=== PATIENT | male | born 1960 | race Caucasian/White ===

== ENCOUNTER → 2018-02-14 07:01 | Outpatient (CLI) | payer OTHER, SELFPAY ==
[2018-02-14 08:22] LABS: ALT 25 U/L (12-78); AST 14 U/L (15-37); Albumin 4.1 g/dL (3.4-5.0); Alkaline Phosphatase 75 U/L (46-116); Anion Gap 13.9 mmol/L (3-11); BUN 22 mg/dL (7-18); Bilirubin, Total 0.2 mg/dL (0.2-1.0); CO2 25.1 mmol/L (21.0-32.0); CREATININE 0.99 mg/dL (0.70-1.30); Calcium 8.9 mg/dL (8.5-10.1); Chloride 101 mmol/L (98-107); Cholesterol 195 mg/dL (50-200); Glucose 166 mg/dL (70-100); HDL Cholesterol 24 mg/dL (40-60); Hemoglobin A1C 9.6 % (4.5-6.2); LDL CHOLESTEROL 109 mg/dL (<100); Potassium 4.2 mmol/L (3.5-5.1); Sodium 140 mmol/L (136-145); Total Protein 7.1 g/dL (6.4-8.2); Triglyceride 567 mg/dL (30-150)
== END ==
PROVIDERS: PCP Nurse Practitioner; Visit Provider Nurse Practitioner
DX: E11.9 Type 2 diabetes mellitus without complications (principal); E78.5 Hyperlipidemia, unspecified; I10 Essential (primary) hypertension
CPT/HCPCS: 36415; 80053; 80061; 83721; 83036

== ENCOUNTER → 2018-02-20 09:16 | Outpatient (REF) | payer OTHER, SELFPAY ==
[2018-02-20 12:57] LABS: Microalb ug/mg Crea 262.6 ug/mg Cr
== END ==
LOC: LBN 09:16
PROVIDERS: PCP Nurse Practitioner; Visit Provider Nurse Practitioner
DX: E11.65 Type 2 diabetes mellitus with hyperglycemia (principal)
CPT/HCPCS: 82043; 82570

== ENCOUNTER 2018-10-14 10:00 | Outpatient (CLI) | payer OTHER, SELFPAY ==
[2018-10-14 11:13] LABS: ALT 27 U/L (12-78); AST 11 U/L (15-37); Albumin 4.2 g/dL (3.4-5.0); Alkaline Phosphatase 82 U/L (46-116); Anion Gap 14.2 mmol/L (3-11); BUN 27 mg/dL (7-18); Bilirubin, Total 0.3 mg/dL (0.2-1.0); CO2 23.8 mmol/L (21.0-32.0); CREATININE 0.97 mg/dL (0.70-1.30); Calcium 9.8 mg/dL (8.5-10.1); Chloride 101 mmol/L (98-107); Cholesterol 235 mg/dL (50-200); Glucose 195 mg/dL (70-100); HDL Cholesterol 23 mg/dL (40-60); LDL CHOLESTEROL 153 mg/dL (<100); Sodium 139 mmol/L (136-145); Total Protein 7.8 g/dL (6.4-8.2); Triglyceride 471 mg/dL (30-150)
[2018-10-14 11:59] LABS: COMMENT (LAB VIEW ONLY) 71.02 mg/dL; Microalb ug/mg Crea 307.7 ug/mg Cr
== END 2018-10-14 10:20 ==
PROVIDERS: PCP Nurse Practitioner; Visit Provider Nurse Practitioner
DX: E11.9 Type 2 diabetes mellitus without complications (principal); I10 Essential (primary) hypertension; E78.5 Hyperlipidemia, unspecified; E66.9 Obesity, unspecified
CPT/HCPCS: 36415; 80053; 80061; 83721; 82043; 82570

== ENCOUNTER 2018-10-14 10:20 | Day surgery (SDC) | payer OTHER, SELFPAY ==
[2018-10-14 10:40] VITALS: BP 129/65; PULSE 96; RESP 18; TEMP 36.1; O2SAT 97
[2018-10-14] MEDS: Lactated Ringers 1,000 ML 80 ML IV (10:59)
--- NOTE | 2018-10-14 11:06 | W.PREOPHP ---
Documented by User: ALEXEY Schulte 10/14/18 11:26 Date of service: 10/14/18 Assessment and Plan (1) Carpal tunnel syndrome of left wrist: Current visit: No Status: Chronic LEFT ECTR. Details of surgery were discussed with patient as well as risks and pertinent anatomy. All questions were answered. 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 He previously had symptoms in his right hand that were completely resolved with a right ECTR. His left hand is starting to get in the way at work in that he is unable to feel equipment when starting an IV and similar activities. He also is having difficulty feeling a pulse with his left hand. Since a right ECTR worked so well for his symptoms last time, he would like to proceed with a left ECTR. Pertinent Surgical Information Patient denies history of hypertension, CVA, UT, angina, asthma, COPD, renal or liver disorders, hepatitis, bleeding disorders, diabetes, immune or thyroid disorders. No complications from anesthesia. Review of Systems Constitutional Denies fever(s) ENT Denies dizziness and Denies sore throat Cardiovascular Denies chest pain, Denies palpitations and Denies dyspnea Respiratory Denies cough and Denies dyspnea Gastrointestinal Denies abdominal pain, Denies melena, Denies hematochezia, Denies diarrhea, Denies nausea and Denies vomiting Genitourinary Denies hematuria and Denies dysuria Neurologic Denies dizziness Endocrine Denies palpitations PFSH Medical History Unspecified sleep apnea (Acute 09/25/11) Restless legs (Acute 09/25/11) Other and unspecified hyperlipidemia (Acute 10/28/12) Other and unspecified hyperlipidemia (Acute 10/28/12) GERD (gastroesophageal reflux disease) (Acute 08/06/14) Essential hypertension (Acute 01/30/13) Diabetes mellitus (Acute 10/29/12) History of wisdom tooth extraction (Acute) Surgical History History of ankle fusion (Acute) History of open reduction and internal fixation (ORIF) procedure (Acute) History of colonoscopy (Chronic) Endoscopic Carpal Tunnel release (05/16/15) Meniscectomy (04/19/14) Social History Smoking/Tobacco Use Status: Current every day Tobacco Type: cigarettes Years smoked: 45 Alcohol Intake: never Drug use: Never Substance use type: does not use Household members: significant other What is your relationship status?: living with partner Panel score (0-1 are the most socially isolated patients): 1 What type of physical activity do you participate in: none Do you feel safe at home: Yes Do you feel safe in your relationship?: Yes Meds Home Medications Medication Instructions Recorded Confirmed Type ascorbic acid (vitamin C) 1,000 mg PO DAILY 10/06/12 10/14/18 History aspirin [Aspir 81] 81 mg PO DAILY tab 10/06/12 10/14/18 History garlic 1 ea PO DAILY 10/06/12 10/14/18 History multivitamin [Daily Vitamin] 1 ea PO DAILY 10/06/12 10/14/18 History omega-3 fatty acids-fish oil [Fish 1 ea PO HS 10/06/12 10/14/18 History Oil 1,000 Mg Capsule] ginkgo biloba leaf extract 120 mg PO BID 07/22/17 10/14/18 History fenofibrate nanocrystallized 145 mg PO DAILY #90 tab-cap 11/21/17 10/14/18 Rx [Tricor] lisinopril 20 mg PO DAILY #90 tab-cap 11/26/17 10/14/18 Rx pen needle, diabetic [Bd #100 ndl 01/30/18 09/09/18 Rx Ultra-Fine Pen Needle] atorvastatin 80 mg tablet 80 mg PO DAILY #90 tab-cap 04/02/18 10/14/18 Rx glimepiride 4 mg tablet 4 mg PO BID tab 06/02/18 10/14/18 History empagliflozin 25 mg tablet 25 mg PO DAILY #30 tab-cap 07/03/18 10/14/18 Rx omeprazole 20 mg capsule,delayed 20 mg PO DAILY #90 tab-cap 08/18/18 10/14/18 Rx release liraglutide 0.6 mg/0.1 mL (18 mg/3 1.8 mg SUBCUT DAILY #3 syringe 09/03/18 10/14/18 Rx mL) subcutaneous pen injector gabapentin 600 mg tablet 600 mg PO HS #90 tab-cap 10/06/18 10/14/18 Rx metformin ER 1,000 mg 24 hr 2,000 mg PO DAILY #180 tab-cap 10/06/18 10/14/18 Rx tablet,extended release Allergies Allergy/AdvReac Type Severity Reaction Status Date / Time shellfish derived Allergy Unknown throat Verified 10/10/18 08:59 sweLLS Exam HENTN Head: normocephalic and atraumatic General nose exam: no nasal discharge Eyes Conjunctivae: conjunctivae normal Sclera: sclerae normal Resp Effort & Inspection: normal respiratory effort Auscultation: clear to auscultation bilaterally and no wheezes Cardio Rate: regular rate Rhythm: regular rhythm Heart Sounds: S1 normal, S2 normal and no murmurs GI Palpation: soft, no hepatosplenomegaly and nontender Auscultation: normal bowel sounds Results Last Vital Signs Temp 36.1 C L 10/14/18 10:40 Pulse 96 H 10/14/18 10:40 Resp 18 10/14/18 10:40 BP 129/65 10/14/18 10:40 Pulse Ox 97 10/14/18 10:40 Documented by User: Sergio Mccullough MD 10/14/18 12:45 PFSH Medical History Unspecified sleep apnea (Acute 09/25/11) Restless legs (Acute 09/25/11) Other and unspecified hyperlipidemia (Acute 10/28/12) Other and unspecified hyperlipidemia (Acute 10/28/12) GERD (gastroesophageal reflux disease) (Acute 08/06/14) Essential hypertension (Acute 01/30/13) Diabetes mellitus (Acute 10/29/12) History of wisdom tooth extraction (Acute) Surgical History History of ankle fusion (Acute) History of open reduction and internal fixation (ORIF) procedure (Acute) History of colonoscopy (Chronic) Endoscopic Carpal Tunnel release (05/16/15) Meniscectomy (04/19/14) Social History Smoking/Tobacco Use Status: Current every day Tobacco Type: cigarettes Years smoked: 45 Alcohol Intake: never Drug use: Never Substance use type: does not use Household members: significant other What is your relationship status?: living with partner Panel score (0-1 are the most socially isolated patients): 1 What type of physical activity do you participate in: none Do you feel safe at home: Yes Do you feel safe in your relationship?: Yes Meds Home Medications Medication Instructions Recorded Confirmed Type ascorbic acid (vitamin C) 1,000 mg PO DAILY 10/06/12 10/14/18 History aspirin [Aspir 81] 81 mg PO DAILY tab 10/06/12 10/14/18 History garlic 1 ea PO DAILY 10/06/12 10/14/18 History multivitamin [Daily Vitamin] 1 ea PO DAILY 10/06/12 10/14/18 History omega-3 fatty acids-fish oil [Fish 1 ea PO HS 10/06/12 10/14/18 History Oil 1,000 Mg Capsule] ginkgo biloba leaf extract 120 mg PO BID 07/22/17 10/14/18 History fenofibrate nanocrystallized 145 mg PO DAILY #90 tab-cap 11/21/17 10/14/18 Rx [Tricor] lisinopril 20 mg PO DAILY #90 tab-cap 11/26/17 10/14/18 Rx pen needle, diabetic [Bd #100 ndl 01/30/18 09/09/18 Rx Ultra-Fine Pen Needle] atorvastatin 80 mg tablet 80 mg PO DAILY #90 tab-cap 04/02/18 10/14/18 Rx glimepiride 4 mg tablet 4 mg PO BID tab 06/02/18 10/14/18 History empagliflozin 25 mg tablet 25 mg PO DAILY #30 tab-cap 07/03/18 10/14/18 Rx omeprazole 20 mg capsule,delayed 20 mg PO DAILY #90 tab-cap 08/18/18 10/14/18 Rx release liraglutide 0.6 mg/0.1 mL (18 mg/3 1.8 mg SUBCUT DAILY #3 syringe 09/03/18 10/14/18 Rx mL) subcutaneous pen injector gabapentin 600 mg tablet 600 mg PO HS #90 tab-cap 10/06/18 10/14/18 Rx metformin ER 1,000 mg 24 hr 2,000 mg PO DAILY #180 tab-cap 10/06/18 10/14/18 Rx tablet,extended release Allergies Allergy/AdvReac Type Severity Reaction Status Date / Time shellfish derived Allergy Unknown throat Verified 10/10/18 08:59 Estefani
--- NOTE | 2018-10-14 12:45 | W.PM.DSUDISC ---
Discharge Plan Disposition Patient Disposition: HOME Condition: Good Discharge Details Reason For Visit: Left Carpal Tunnel Attending Provider: Sergio Mccullough Primary Care Provider: Dianne Enriquez Home Meds and New Rx's Prescriptions: New acetaminophen 500 mg tablet 1,000 mg PO Q8H PRN (Reason: pain) Qty: 60 RF: 3 ibuprofen 600 mg tablet 600 mg PO TID PRNQty: 60 RF: 3 Continued multivitamin [Daily Vitamin] 1 EACH tablet 1 ea PO DAILY RF: 0 ascorbic acid (vitamin C) 1,000 MG tablet 1,000 mg PO DAILY RF: 0 aspirin [Aspir-81] 81 MG tablet,delayed release (DR/EC) 81 mg PO DAILY RF: 0 garlic 1 EACH capsule 1 ea PO DAILY RF: 0 omega-3 fatty acids-fish oil [Fish Oil] 1 EACH capsule 1 ea PO HS RF: 0 ginkgo biloba leaf extract 120 MG capsule 120 mg PO BID RF: 0 fenofibrate nanocrystallized [Tricor] 145 MG tablet 145 mg PO DAILY Qty: 90 RF: 3 lisinopril 20 MG tablet 20 mg PO DAILY Qty: 90 RF: 4 pen needle, diabetic [BD Ultra-Fine Afua Pen Needle] 1 EACH needle 1 ea Sub-Q DAILY Qty: 100 RF: 3 atorvastatin 80 mg tablet 80 mg PO DAILY Qty: 90 RF: 3 glimepiride 4 mg tablet 4 mg PO BID RF: 0 Jardiance 25 mg tablet 25 mg PO DAILY Qty: 30 RF: 6 omeprazole 20 mg capsule,delayed release(DR/EC) 20 mg PO DAILY Qty: 90 RF: 3 Victoza 3-Alvaro 0.6 mg/0.1 mL (18 mg/3 mL) pen injector 1.8 mg subcut DAILY Qty: 3 RF: 12 gabapentin 600 mg tablet 600 mg PO HS Qty: 90 RF: 3 metformin 1,000 mg tablet,ER beau.retention 24 hr 2,000 mg PO DAILY Qty: 180 RF: 3 Discharge Instructions Stand Alone Forms: Jamel Rios Tunnel Release Referrals: Sergio Mccullough MD [ [facility] STAFF PHYSICIAN] - Equipment/Supplies: Sling Activity:: Elevate Remove Dressings/Wound Care:: 48 hours Shower/Bathe:: 48 hours Diet:: As Tolerated Discharge Orders Discharge Orders: Discharge Order (Routine); Ordered 10/14/18 Ordered By: Sergio Mccullough DS: Diagnosis Discharge Diagnosis (1) Carpal tunnel syndrome of left wrist: Status: Chronic
[2018-10-14] MEDS: ceFAZolin 2 GM/50 ML BAG IVPB (13:11)
[2018-10-14] MEDS: Lidocaine 1% Multi-Dose 50 ML VIAL (13:20)
[2018-10-14 14:00] VITALS: BP 121/69; PULSE 85; RESP 18; TEMP 36.1; O2SAT 94
--- NOTE | 2018-10-15 06:41 | ROE_ITS ---
Date of service: 10/14/18 Time of Service: 13:40 Operative Note DATE OF PROCEDURE: 10/14/18 PRE-OP DIAGNOSIS: Left Carpal Tunnel Syndrome POST-OP DIAGNOSIS: same PROCEDURE: Left Endoscopic Carpal Tunnel Release SURGEON: Sergio Mccullough ANESTHESIA: ANTOINETTE ESTIMATED BLOOD LOSS: 0 PATHOLOGY: none sent TOURNIQUET TIME: 3 COMPLICATIONS: None Patient was transported to: same day Patient's condition: stable Indications: I have seen Nancy in clinic for symptoms of carpal tunnel syndrome. The numbness, tingling, and pain limited function. Clinical exam findings confirmed the diagnosis of carpal tunnel syndrome. Nonoperative measures such as bracing, time, activity modifications had been tried but disability and pain persisted. I discussed carpal tunnel release with the patient. I reviewed the risks of the procedure to include, but not limited to, bleeding, infection, pain, stiffness, incomplete release, damage to nerves or vessels, persistent numbness, recurrence. Despite these risks, the patient elected to proceed. Findings: There was tightened carpal tunnel. This was dilated and released successfully with the endoscopic with increased space within the tunnel. The antebrachial fascia was released proximally freeing the median nerve at the wrist. Procedure Description: Nancy was greeted in the preoperative holding area where the correct side was identified and marked. The consent was reviewed with the patient and signed. The history and physical was updated. All questions were answered. He was taken back to the operating room. The patient was placed into the supine position on the operating room table with the left arm on an arm board. A nonsterile tourniquet was placed high onto the arm. All bony prominences were well padded. Prophylactic antibiotics in the form of cefazolin were administered. The left arm was then prepped with Chloraprep and draped in a standard fashion with stockinette and extremity drape. A timeout to confirm correct identity, side and site, procedure, allergies, anesthesia, and medical concerns was performed. The surgical site was marked in the volar wrist creases in line with the radial border of the fourth ray. This area was anesthetized with approximately 6cc of 1% Lidocaine. The limb was then exsanguinated with an Esmarch. The skin was incised with a 15 blade, approximately 1cm. The skin only was cut and the deeper tissue was dissected bluntly with a tenotomy scissor, avoiding passing nerve and venous structures. The fascia was penetrated and opened bluntly. A two-prong skin hook was placed under this proximal fascial edge. A series of hamate finders were used to identify and dilate the carpal tunnel. Synovial elevator was used to free synovial attachments to the underside of the transverse carpal ligament. My thumb was kept in the palm to shannan the distal extent of the carpal tunnel and correctly position the hand. The Microaire endoscope was inserted without difficulty and without resistance. Excellent visualization showed horizontally running fibers of the transverse carpal ligam ent (TCL). The distal extent of the TCL was visualized and the end of the scope palpated with the thumb. The blade was elevated and withdrawn from distal to proximal. The TCL was split into two flaps. The endoscope was reinserted to confirm complete release and any remnant ligament was incised. The scope was withdrawn and the proximal aspect of the carpal tunnel was grossly inspected and appeared release with the median nerve visible. The antebrachial fascia at the level of the wrist was then freed from the overlying skin and then the underlying median nerve with blunt dissection. This was transected longitudinally for about 3cm proximal to the wrist incision. The wound was then irrigated with easy flow of irrigant distally and proximally. The incision was closed with a single 4-0 Nylon suture. The wound was dressed with Xeroform, Gauze, Kerlix and Gorge. The tourniquet was deflated with the initial dressing and held with some pressure. Blood flow returned easily to all digits with capillary refill less than 2 seconds. The patient tolerated the procedure well and was returned to the Same Day Surgery area in a stable condition suffering no known complication.
== END 2018-10-14 14:05 | disposition home or self-care (01) ==
PROVIDERS: PCP Nurse Practitioner; Visit Provider Student in an Organized Health Care Education/Training Program
PROC: 01N54ZZ Release Median Nerve, Percutaneous Endoscopic Approach (ICD-10-PCS; CPT 29848; principal; 2018-10-14 12:30)
DX: G56.02 Carpal tunnel syndrome, left upper limb (principal)
CPT/HCPCS: 29848; NC; J0690; J2250; L3650

== ENCOUNTER 2019-01-16 11:04 | Outpatient (CLI) | payer OTHER, SELFPAY ==
--- NOTE | 2019-01-16 08:11 | DI.RAD_ITS ---
SYMPTOM/DIAGNOSIS: LT SHOULDER PAIN/WEAKNESS LEFT SHOULDER: Three views. Comparison 03/06/2008. There are mild hypertrophic changes seen at the acromioclavicular joint and mild changes seen at the glenohumeral joint. The bones are intact. The soft tissues are unremarkable. IMPRESSION: Mild degenerative changes of the left shoulder.
== END 2019-01-16 11:24 ==
PROVIDERS: PCP Nurse Practitioner; Visit Provider Physician Assistant
DX: S49.92XA Unspecified injury of left shoulder and upper arm, initial encounter (principal); M25.512 Pain in left shoulder; M19.012 Primary osteoarthritis, left shoulder
CPT/HCPCS: 73030

== ENCOUNTER 2019-01-27 00:49 | Outpatient (CLI) | payer OTHER, SELFPAY ==
--- NOTE | 2019-01-27 08:40 | DI.MRI_ITS ---
SYMPTOM/DIAGNOSIS: LEFT SHOULDER PAIN/WEAKNESS M75.122 ROTATOR CUFF TEAR LT SHOULDER MRI LEFT SHOULDER: Routine examination was performed. There is patient motion artifact which degrades the image quality. There is a full thickness tear of the supraspinatus tendon at its insertion on to the greater tuberosity. There is also a full thickness tear of the infraspinatus tendon at its insertion site. The teres minor and subscapularis tendons are intact. There is mild fatty atrophy involving the supraspinatus and infraspinatus muscles The teres minor subscapularis muscles appear within normal limits. The biceps tendon has a normal appearance and location. There does appear to be increased signal in the superior labrum. This may represent degeneration or a tear. There are hypertrophic changes seen at the acromioclavicular joint and the greater tuberosity. No findings to suggest an occult fracture or avascular necrosis. The articular cartilage at the glenohumeral joint appears well maintained. The ligaments are intact. No soft tissue mass is seen. There is a small amount of fluid which appears in the subacromial, subdeltoid bursa. IMPRESSION: 1. Limited examination due to patient motion artifact. 2. Findings suggestive of full thickness tears involving the supraspinatus and infraspinatus tendon 3. Abnormal signal seen in the superior labrum. This may represent degeneration and/or tear. 4. Degenerative changes of the shoulder.
== END 2019-01-27 01:09 ==
PROVIDERS: PCP Nurse Practitioner; Visit Provider Physician Assistant
DX: M75.122 Complete rotator cuff tear or rupture of left shoulder, not specified as traumatic (principal); M25.512 Pain in left shoulder; M19.012 Primary osteoarthritis, left shoulder
CPT/HCPCS: 73221

== ENCOUNTER 2019-03-09 07:23 | Outpatient (CLI) | payer OTHER, SELFPAY ==
[2019-03-09 08:06] LABS: Hemoglobin A1C 7.8 % (4.5-6.2)
== END 2019-03-09 07:43 ==
PROVIDERS: Student in an Organized Health Care Education/Training Program; PCP Nurse Practitioner; Visit Provider Nurse Practitioner
DX: E11.9 Type 2 diabetes mellitus without complications (principal)
CPT/HCPCS: 36415; 83036

== ENCOUNTER 2019-03-24 08:46 | Outpatient (CLI) | payer OTHER, SELFPAY ==
--- NOTE | 2019-03-24 07:59 | W.PREOPHP ---
Assessment and Plan Assessment and plan (1) Tear of left rotator cuff: Status: Chronic Assessment and plan: Plan: Educated patient on surgery covering surgical technique, recovery process, benefits and risks including but not limited to risk of infection, blood clot, damage to soft tissue/blood vessels/nerves in detail. After discussion patient gives verbal understanding of risks and elects to proceed with scheduling surgery. Patient had opportunity to have questions answered to their satisfaction. They will contact office if issues arise. Patient will continue to be scheduled for left arthroscopic rotator cuff repair, biceps tenodesis with Dr. Mccullough. Qualifiers: Rotator cuff tear extent: complete Rotator cuff tear trauma status: unspecified whether traumatic Qualified Code(s): M75.122 - Complete rotator cuff tear or rupture of left shoulder, not specified as traumatic History of Present Illness Narrative: Mr. Lassiter is a 59-year-old right-hand dominant male who presents to clinic for pre-operative visit for scheduled arthroscopic left rotator cuff repair and biceps tenodesis with Dr. Mccullough. Patient has history of left shoulder injury several years ago which he has managed conservatively. However, over the past 6 months he experienced increased difficulty using his arm including difficultly lifting the arm in abduction and forward flexion. Reports a constant pain diffusely around the shoulder rated a 3/10. Has tried tylenol and ibuprofen in the past which helps to dull it slightly. Denies any recent injuries or trauma. He underwent an MRI which as per Dr. Mccullough's note on 01/30/19 showed complete tear of his left supraspinatus and most of the infraspinatus and questionable partial tearing of the upper portion of the subscapularis. Due to his symptoms and MRI findings patient was offered surgical intervention and was eager to proceed. Pertinent Surgical Information Denies past medical history of: stroke, cardiac issues, angina, asthma, COPD, renal issues, liver issues, hepatitis, gastrointestinal ulcers, bleeding disorders, seizures, migraines, depression, autoimmune disorders, thyroid issues Reports had difficulty coming out of anesthesia when he had his wisdom tooth removed in May 2017 at [facility]. Denies any additional complications from surgery or anesthesia. Review of Systems Constitutional Constitutional: Denies fever(s), Denies frequent falls and Denies headache(s) Eyes Eyes: Denies change in vision ENT Ears, Nose, Mouth, and Throat: Denies dizziness, Denies ear discharge, Denies headache(s), Denies epistaxis, Reports nasal discharge (clear dc when had a cold ~3 wk; no color changes; denies current symptoms) and Denies sore throat Cardiovascular Cardiovascular: Denies chest pain, Denies rapid heart rate, Denies irregular heart rhythm, Denies palpitations, Denies dyspnea, Denies dyspnea on exertion, Denies orthopnea, Denies paroxysmal nocturnal dyspnea, Denies slow heart rate and Reports other (occasionally wakes up due to mask discomfort; denies PND) Respiratory Respiratory: Reports cough (chronic dry cough; denies any recent change), Denies dyspnea, Denies dyspnea on exertion and Reports wheezing (occasionally; denies any recent change) Gastrointestinal Gastrointestinal: Denies abdominal pain, Denies melena, Denies hematochezia, Denies constipation, Denies diarrhea, Denies nausea and Denies vomiting Genitourinary Genitourinary: Denies hematuria, Denies dysuria and Reports urinary urgency (due to medication) Musculoskeletal Musculoskeletal: Reports as per HPI, Denies numbness and Denies tingling Neurologic Neurologic: Denies dizziness, Denies frequent falls, Denies headache(s), Denies numbness and Denies tingling Psychiatric Psychiatric: Reports anxiety and Denies depression Endocrine Endocrine: Denies palpitations Allergic/Immunologic Allergic/Immunologic: Reports wheezing (occasionally; denies any recent change) [facility] Family History (Updated 03/24/19 @ 08:31 by Marie Long) Mother Diabetes Stroke Heart disease Alzheimer disease Father Colon cancer Heart disease Diabetes Social History Smoking/Tobacco Use Status: Current every day Tobacco Type: cigarettes Years smoked: 45 Alcohol Intake: never Drug use: Never Substance use type: does not use Household members: significant other current occupation: nurse in [employer] What is your relationship status?: living with partner Panel score (0-1 are the most socially isolated patients): 1 What type of physical activity do you participate in: none Seatbelt use: always Helmet use: Yes Drive intox or ride w/intox class b truck driver: No Water heater temp set <120 deg: Yes Working smoke detector in home: Yes Fire extinguisher in home: Yes Carbon monox detector in home: Yes Firearms in home: Yes Firearms unloaded and locked: Yes Do you feel safe at home: Yes Do you feel safe in your relationship?: Yes Victim of physical abuse: No Victim of emotional abuse: No Victim of sexual abuse: No Meds Home Medications and Allergies Home Medications Medication Instructions Recorded Confirmed Type Fish Oil 1 ea PO HS 10/06/12 03/24/19 History ascorbic acid (vitamin C) 1,000 mg PO DAILY 10/06/12 03/24/19 History aspirin [Aspir-81] 81 mg PO DAILY tab 10/06/12 03/24/19 History garlic 1 ea PO DAILY 10/06/12 03/24/19 History multivitamin [Daily Vitamin] 1 ea PO DAILY 10/06/12 03/24/19 History ginkgo biloba leaf extract 120 mg PO BID 07/22/17 03/24/19 History atorvastatin 80 mg tablet 80 mg PO DAILY #90 tab-cap 04/02/18 03/24/19 Rx glimepiride 4 mg tablet 4 mg PO BID tab 06/02/18 03/24/19 History omeprazole 20 mg capsule,delayed 20 mg PO DAILY #90 tab-cap 08/18/18 03/24/19 Rx release liraglutide 0.6 mg/0.1 mL (18 mg/3 1.8 mg SUBCUT DAILY #3 syringe 09/03/18 03/24/19 Rx mL) subcutaneous pen injector metformin 1,000 mg 24 hr 2,000 mg PO DAILY #180 tab-cap 10/06/18 03/24/19 Rx tablet,extended release acetaminophen 1,000 mg PO Q8H PRN #60 tab 10/14/18 03/24/19 Rx ibuprofen 600 mg PO TID PRN #60 tab 10/14/18 03/24/19 Rx fenofibrate nanocrystallized 145 145 mg PO DAILY #90 tab-cap 11/17/18 03/24/19 Rx mg tablet empagliflozin 25 mg tablet 25 mg PO DAILY #30 tab-cap 01/30/19 03/24/19 Rx gabapentin 800 mg tablet 800 mg PO QHS #90 tab 03/10/19 03/24/19 Rx nicotine (polacrilex) 4 mg gum 4 mg BC Q1H #200 each 03/10/19 03/24/19 Rx pen needle, diabetic 32 gauge x #100 ndl 03/19/19 03/24/19 Rx 5/32 lisinopril 20 mg PO HS 03/24/19 03/24/19 History Allergies Allergy/AdvReac Type Severity Reaction Status Date / Time shellfish derived Allergy Severe throat Verified 03/24/19 08:33 swells Exam Const General: cooperative and no acute distress [facility] Head: normal to inspection, normocephalic and atraumatic Ears: external ears normal General nose exam: external nose normal and no nasal discharge Face and sinus: face symmetric Mouth: oral mucosae normal, lip normal, tongue normal and moist mucous membranes Teeth and gingiva: dentition normal Throat: posterior oropharynx normal Eyes General: appearance normal, both eyes and all related structures Pupils: PERRL EOM: EOM intact bilaterally Neck Neck: trachea midline Carotids: normal carotid upstroke Lymphatic: no lymphadenopathy noted Resp Effort & Inspection: normal respiratory effort and able to speak in complete sentences Auscultation: clear to auscultation bilaterally, no rales, no rhonchi and no wheezes Cardio Heart Sounds: S1 normal, S2 normal and no murmurs Pulses: radial pulses present bilaterally GI Palpation: soft, no hepatosplenomegaly and nontender Auscultation: normal bowel sounds Skin General skin exam: no rashes or lesions noted Extrem Other: Left shoulder examination: Skin is intact without erythema, lesions or rashes. Tenderness to palpation over long head of the biceps. Speeds and Obriens test elicited discomfort; unable to hold arm against light resistance.
== END 2019-03-24 09:06 ==
PROVIDERS: PCP Nurse Practitioner; Visit Provider Student in an Organized Health Care Education/Training Program
DX: M75.122 Complete rotator cuff tear or rupture of left shoulder, not specified as traumatic (principal); Z01.818 Encounter for other preprocedural examination
CPT/HCPCS: NC

== ENCOUNTER 2019-03-31 06:10 | Day surgery (SDC) | payer OTHER, SELFPAY ==
[2019-03-31] VITALS (11 sets, daily range): BP systolic 100–141; BP diastolic 44–90; PULSE 88–108; RESP 15–24; TEMP 36–36.5; O2SAT 89–96
[2019-03-31] MEDS: Lactated Ringers 1,000 ML 80 ML IV ×2 (06:45→10:17)
[2019-03-31] MEDS: Bupivacaine LIPOSOME/PF 133 MG/10 ML VIAL IJ (07:20)
[2019-03-31] MEDS: Bupivacaine 0.5% Pres-Free 30 ML VIAL ×2 (07:20→09:03)
--- NOTE | 2019-03-31 07:26 | W.PM.DSUDISC ---
Discharge Plan Disposition Patient Disposition: HOME Condition: Good Discharge Details Reason For Visit: (L) RTC Tear Attending Provider: Sergio Mccullough Primary Care Provider: Dianne Enriquez Home Meds and New Rx's Prescriptions: New oxycodone 5 mg tablet 5 mg PO Q4H Qty: 18 RF: 0 Continued nicotine (polacrilex) 4 mg gum 4 mg BC Q1H Qty: 200 RF: 5 gabapentin 800 mg tablet 800 mg PO QHS Qty: 90 RF: 3 multivitamin [Daily Vitamin] 1 EACH tablet 1 ea PO DAILY RF: 0 ascorbic acid (vitamin C) 1,000 MG tablet 1,000 mg PO DAILY RF: 0 aspirin [Aspir-81] 81 MG tablet,delayed release (DR/EC) 81 mg PO DAILY RF: 0 garlic 1 EACH capsule 1 ea PO DAILY RF: 0 Fish Oil 1 EACH capsule 1 ea PO HS RF: 0 ginkgo biloba leaf extract 120 MG capsule 120 mg PO BID RF: 0 atorvastatin 80 mg tablet 80 mg PO DAILY Qty: 90 RF: 3 glimepiride 4 mg tablet 4 mg PO BID RF: 0 omeprazole 20 mg capsule,delayed release(DR/EC) 20 mg PO DAILY Qty: 90 RF: 3 Victoza 3-Alvaro 0.6 mg/0.1 mL (18 mg/3 mL) pen injector 1.8 mg subcut DAILY Qty: 3 RF: 12 metformin 1,000 mg tablet,ER beau.retention 24 hr 2,000 mg PO DAILY Qty: 180 RF: 3 fenofibrate nanocrystallized [Tricor] 145 mg tablet 145 mg PO DAILY Qty: 90 RF: 3 Jardiance 25 mg tablet 25 mg PO DAILY Qty: 30 RF: 6 lisinopril 20 mg tablet 20 mg PO HS RF: 0 acetaminophen 500 mg tablet 1,000 mg PO Q8H PRN (Reason: pain) Qty: 60 RF: 3 ibuprofen 600 mg tablet 600 mg PO TID PRNQty: 60 RF: 3 No Action (DME) pen needle, diabetic [BD Ultra-Fine Afua Pen Needle] 32 gauge x 5/32 needle 1 ea Sub-Q DAILY Qty: 100 RF: 3 Discharge Instructions Stand Alone Forms: Jamel Márquez w/RCR Referrals: Sergio Mccullough MD [ [facility] STAFF PHYSICIAN] - Equipment/Supplies: Sling Activity:: In sling except for hygiene and pendulum Remove Dressings/Wound Care:: 72 hours Shower/Bathe:: 72 hours Diet:: As Tolerated Discharge Orders Discharge Orders: Discharge Order (Routine); Ordered 03/31/19 Ordered By: Sergio Mccullough DS: Diagnosis Discharge Diagnosis (1) Tear of left rotator cuff: Status: Chronic
[2019-03-31] MEDS: ceFAZolin 2 GM/50 ML BAG IVPB (07:55)
--- NOTE | 2019-03-31 10:13 | HOME_ITS ---
Home Ventilator Equipment Home care [facility] Reason: Obstructive Sleep Apnea Make: Respironics Model: [employer] Mask type: Face mask Mask size: Medium Mode: BiPAP Settings: Max/min 22/13 PS-2.0-4.0 Oxygen bleed in (lpm): 0 Condition: Fair Date last checked: 03/31/19 Year of last sleep study: Compliance Daily Comments:
[2019-03-31] MEDS: EPINEPHrine 1 MG/ML AMP pres-free (10:30)
--- NOTE | 2019-04-01 06:17 | W.PM.OP ---
Date of service: 03/31/19 Time of Service: 11:19 Operative Note Operative Note DATE OF PROCEDURE: 03/31/19 PRE-OP DIAGNOSIS: Left rotator cuff tear, left biceps tendon tear POST-OP DIAGNOSIS: same PROCEDURE: - Arthroscopic Rotator Cuff Repair - Sub-pectoral biceps tenodesis SURGEON: Sergio Mccullough WOOD DOWEL MACHINE OPERATOR: Magdaleno Whitt ANESTHESIA: GETA and regional ESTIMATED BLOOD LOSS: 0 PATHOLOGY: none sent COMPLICATIONS: None Patient was transported to: PACU Patient's condition: stable Indications: I have seen Nancy in clinic for a painful shoulder. Pathology was confirmed based on MRI and exam findings. Nonoperative measures were exhausted but disability and pain persisted. I discussed shoulder arthroscopy and procedures. I reviewed the risks of the procedures to include, but not limited to, bleeding, infection, pain, stiffness, damage to nerves or vessels, recurrence, hardware failure, blood clot. Despite these risks, the patient elected to proceed. Findings: A diagnostic arthroscopy was performed with the following findings: - Glenohumeral Joint: There is a small flap of cartilage delaminated from the central portion of the glenoid. Otherwise, no notable global cartilage changes - Labrum: Some mild fraying of the labrum focus superiorly but not unstable - Cuff: Complete tear of the superior rotator cuff extending down to the posterior rotator cuff in the upper portion of teres minor. The upper portion of subscapularis had a longitudinal tear and pull off of the upper fibers. - Biceps: Tearing seen from the level to groove all the way to the anchor - Subacromial: Notable thickened inflammatory tissue seen bridging the gap between the rotator cuff tendon edge and the tuberosity. Complete rotator cuff tear and minimal anterolateral spurring Procedure Description: Nancy was greeted in the preoperative holding area where the correct side was identified and marked. The consent was reviewed with the patient and signed. The history and physical was updated. All questions were answered. He was taken back to the PACU for administration of an intrascalene nerve block. Nancy was then taken to the operating room. The patient was placed into the supine position on the operating room table. A general anesthetic was administered. He was then positioned in the beach chair position. All bony prominences were well padded. The head was placed in a foam kiln head house operator in a neutral position. Prophylactic antibiotics in the form of cefazolin were administered. The left arm/shoulder was then prepped with Chloraprep and draped in a standard fashion with stockinette and shoulder drape. A timeout to confirm correct identity, side and site, procedure, allergies, anesthesia, and medical concerns was performed. The arm was placed into a pneumatic santiago, [id number]. The shoulder arthroscopy was then performed. The glenohumeral joint was injected with 20 cc of normal saline with good flow back. A standard posterior portal was made and the joint was entered atraumatically with a blunt arthroscope. Once inside we had good visualization of the structures of the glenohumeral joint. An anterior portal was established with spinal needle localization. A 6.5 mm cannula was inserted. A probe was then used to perform a diagnostic arthroscopy. There is noted to be an area of cartilage flap, approximate 3 to 4 mm at most, within the central portion of the glenoid. The labrum was intact anteriorly and posteriorly with minor fraying. There were no loose bodies in the inferior pouch. The superior rotator cuff was completely torn. The biceps tendon was torn from the level of the groove to the anchor. The subscapularis was intact inferiorly but showed a longitudinal split tear in the upper portion of the subscapularis was pulled off to the lesser tuberosity. A thorough debridement was performed of the rotator interval for visualization of the subscapularis tendon. A biceps tenotomy was performed for later tenodesis. Any labral fraying was also debrided. Cartilage flap was not removed since it was not grossly unstable. I then debrided down the upper portion of the lesser tuberosity where the footprint of the subscapularis should reside. A anterolateral portal was then established with spinal needle localization and a 7.5 mm cannula was placed. This became more of the working portals for subscapularis repair. A single Mitek Healix 4.5 mm anchor was then placed within the lesser tuberosity footprint. This was tested to make sure had adequate purchase into the bone. I then placed 2 horizontal mattress sutures into the upper portion of the subscapularis. These were placed into the more healthy appearing tissue. These had excellent purchase and were able to reduce the subscapularis tendon back down to the footprint. These were tied with standard orthoscopic knot tying techniques with excellent reapproximation of the tendon to the bone. The sub-scapulars tendon was then inspected in all positions and was noted to be stable out to 50 degrees of external rotation The biceps tenodesis was then performed. With the arm and some slight external rotation abduction pectoralis major tendon was identified. A 3 cm incision was made overlying the insertion to the humerus. Sharp dissection was carried onto the skin. Blunt dissection was carried down to the fascia the biceps musculature. This was entered with a tenotomy scissors. The biceps groove was palpable and the biceps tendon was palpable. It was withdrawn from the wound using Allis clamp and finger dissection. Once the biceps tendon was out of the arm the biceps groove was prepared using a rasp. A Mitek Lupine anchor was inserted into the biceps groove at the level of the pectoralis major insertion. This was tested to make sure had excellent fixation into the bone. Using a free needle I then placed a locking Krak?w stitch and each side of the biceps tendon using one limb from each suture at the level of the muscular tendinous junction and moving proximally. Excess tendon was then cut. Using the free suture limb I then shuttled the tendon down to the prepared surface of the humerus. It laid flat against the humerus. It was at the level of the pectoralis major tendon. The suture limbs were then tied. The wound was irrigated. The subcutaneous tissue was reapproximated with a 2-0 Vicryl. The arthroscope was then inserted into the subacromial space. The 6.5 mm cannula was placed lateral to the CA ligament. A complete bursectomy is performed anteriorly, posteriorly, and laterally with electrocautery and shaver. The CA ligament was minimally elevated off the acromion and not detached nor transected. This gave excellent exposure of the rotator cuff. The bursal side rotator cuff was difficult to appreciate first given the amount of bursitis seen encapsulating the torn rotator cuff and the subacromial space. There was no significant anterolateral spur. Using a spinal needle a posterior lateral portal was established. This became the viewing portal. After thorough debridement of the remnant bursal tissue the rotator cuff tear was identified. It was a primary reverse L-type tear. There is some delamination seen with the infraspinatus tendon. The entire footprint was exposed all the way posteriorly into some of the upper portions of teres minor were visible. The tendon was actually quite mobile. The inferior portion of the infraspinatus was also mobilized separately. Using tissue liberator's I freed the rotator cuff from adhesions over the glenoid. I was able to bring the tendon over the footprint with quite ease. Therefore proceeded with rotator cuff repair. The tuberosity was debrided with a shaver to promote bleeding and healing. I placed 3 Medial Row anchors. To replace in the more superior portion of the tuberosity and the third was placed more posteriorly. These were Mitek 4.5 mm Healix anchors. 6 horizontal mattress sutures were then placed. These were started posteriorly and the lamination of the infra spinatus tendon was tagged with a tension suture first before placing the other sutures so that I adequately grab this tissue. Once all 6 horizontal mattress sutures were placed these were tied using standard arthroscopic knot tying techniques. There is a small dogear over the posterior corner of the superior greater tuberosity between the transition of the lamination of tissue. However, when probed there was no visible joint. There was abundant tissue laying on top of the greater tuberosity. I was unable to penetrate inside the joint showing an excellent reapproximation of the tendon to the medial row and the articular margin. His tissue quality seem to be marginal at best. Before placing any lateral anchors I tested this out by placing an awl into the bone of the greater tuberosity. Without the use of a mallet they all fell into the tuberosity. A few other positions were tried but there was no significant purchase of bone in this area. Therefore, I left him with a medial row only knowing that literature notes no functional difference between medial and double repairs. The scope equipment was removed from the shoulder. Excess fluid was evacuated. The portal sites were closed with 3-0 Monocryl. The wounds were dressed with Steri-Strips, 4 x 4's, ABDs, Medipore tape. A sling was applied. The patient tolerated the procedure well and was returned to the PACU in a stable condition suffering no known complication.
== END 2019-03-31 14:35 | disposition home or self-care (01) ==
PROVIDERS: PCP Nurse Practitioner; Visit Provider Student in an Organized Health Care Education/Training Program
PROC: (CPT 29827; principal; 2019-03-31 08:00)
PROC: (CPT 23430; 2019-03-31 08:00)
DX: S46.012A Strain of muscle(s) and tendon(s) of the rotator cuff of left shoulder, initial encounter (principal); S46.212A Strain of muscle, fascia and tendon of other parts of biceps, left arm, initial encounter; X58.XXXA Exposure to other specified factors, initial encounter; G89.18 Other acute postprocedural pain; E11.9 Type 2 diabetes mellitus without complications; I10 Essential (primary) hypertension; K21.9 Gastro-esophageal reflux disease without esophagitis; G47.30 Sleep apnea, unspecified; F17.210 Nicotine dependence, cigarettes, uncomplicated
CPT/HCPCS: 23430; 29827; 29823; 76942; J0171; J0690; L3670

== ENCOUNTER 2019-07-15 07:53 | Outpatient (CLI) | payer OTHER, SELFPAY ==
--- NOTE | 2019-07-15 10:59 | DI.MRI_ITS ---
EXAM: MR UPPER JOINT LT WO CLINICAL HISTORY: +Drop arm s/p RTC repair M75.102 ROTATOR CUFF TEAR LT SHOULDER. TECHNIQUE: Multiplanar multisequence MRI was performed. FINDINGS: Postsurgical changes are seen in the left shoulder. There has been interval repair of the rotator cu ff tendons. The subscapularis, infraspinatus and teres minor tendons appear intact. The attachment site for the supraspinatus tendon is not well seen anteriorly and tear should be considered. A biceps tendon is not seen within the bicipital groove. This likely reflects a subpectoral biceps tenodesis. The articular cartilage at the glenohumeral joint appears well maintained. Abnormal signal seen in the superior labrum likely reflecting degeneration. Tear cannot be excluded. There is edema seen in the subchondral bone and the glenoid. There is also mild edema seen in the hu meral head. Moderate degenerative changes are seen at the acromioclavicular joint. No evidence of a n occult fracture or avascular necrosis is seen. There is fluid seen in the subacromial subdeltoid bursa. No soft tissue mass or other focal fluid co llection is appreciated. IMPRESSION: 1. Postsurgical changes in the left shoulder which includes repair of the rotator cuff tendons and pr obable biceps tenodesis. 2. Attachment site for the supraspinatus tendon not well seen anteriorly and tear should be considere d. 3. Degeneration of the superior labrum. 4. Degenerative changes of the acromioclavicular joint. 5. Fluid seen in the subacromial subdeltoid bursa.
== END 2019-07-15 08:13 ==
PROVIDERS: PCP Nurse Practitioner; Visit Provider Student in an Organized Health Care Education/Training Program
DX: M75.102 Unspecified rotator cuff tear or rupture of left shoulder, not specified as traumatic (principal); Z98.890 Other specified postprocedural states; M19.012 Primary osteoarthritis, left shoulder; M25.412 Effusion, left shoulder
CPT/HCPCS: 73221

== ENCOUNTER 2019-07-22 13:31 | Outpatient (CLI) | payer OTHER, SELFPAY ==
[2019-07-22 14:22] LABS: Hemoglobin A1C 7.7 % (3.8-5.6)
== END 2019-07-22 13:51 ==
PROVIDERS: PCP Nurse Practitioner; Visit Provider Student in an Organized Health Care Education/Training Program
DX: M75.102 Unspecified rotator cuff tear or rupture of left shoulder, not specified as traumatic (principal); E11.9 Type 2 diabetes mellitus without complications
CPT/HCPCS: 36415; 83036

== ENCOUNTER 2019-07-29 10:28 | Day surgery (SDC) | payer OTHER, SELFPAY ==
[2019-07-29] VITALS (11 sets, daily range): BP systolic 96–153; BP diastolic 53–90; PULSE 87–100; RESP 16–31; TEMP 35.9–36.8; O2SAT 91–98
--- NOTE | 2019-07-29 11:01 | PDOC.DSDIS_ITS ---
Discharge Plan Disposition Patient Disposition: HOME Condition: Good Discharge Details Reason For Visit: RTC REPAIR Attending Provider: Sergio Mccullough Primary Care Provider: Dianne Enriquez Home Meds and New Rx's Prescriptions: New oxycodone 5 mg tablet 5 mg PO Q4H Qty: 18 RF: 0 Continued lorazepam [Ativan] 1 mg tablet 1 mg PO HS PRN (Reason: anxiety) Qty: 28 RF: 0 alprazolam 0.5 mg tablet 0.5 mg PO ONCE PRN (Reason: claustrophobia) Qty: 2 RF: 0 nicotine (polacrilex) 4 mg gum 4 mg BC Q1H Qty: 200 RF: 5 gabapentin 800 mg tablet 800 mg PO QHS Qty: 90 RF: 3 multivitamin [Daily Vitamin] 1 EACH tablet 1 ea PO DAILY RF: 0 ascorbic acid (vitamin C) 1,000 MG tablet 1,000 mg PO DAILY RF: 0 aspirin [Aspir-81] 81 MG tablet,delayed release (DR/EC) 81 mg PO DAILY RF: 0 garlic 1 EACH capsule 1 ea PO DAILY RF: 0 Fish Oil 1 EACH capsule 1 ea PO HS RF: 0 ginkgo biloba leaf extract 120 MG capsule 120 mg PO BID RF: 0 omeprazole 20 mg capsule,delayed release(DR/EC) 20 mg PO DAILY Qty: 90 RF: 3 Victoza 3-Alvaro 0.6 mg/0.1 mL (18 mg/3 mL) pen injector 1.8 mg subcut DAILY Qty: 3 RF: 12 metformin 1,000 mg tablet,ER beau.retention 24 hr 2,000 mg PO DAILY Qty: 180 RF: 3 fenofibrate nanocrystallized [Tricor] 145 mg tablet 145 mg PO DAILY Qty: 90 RF: 3 Jardiance 25 mg tablet 25 mg PO DAILY Qty: 30 RF: 6 (DME) pen needle, diabetic [BD Ultra-Fine Afua Pen Needle] 32 gauge x 5/32 needle 1 ea Sub-Q DAILY Qty: 100 RF: 3 atorvastatin 80 mg tablet 80 mg PO DAILY Qty: 90 RF: 3 glimepiride 4 mg tablet 4 mg PO BID Qty: 180 RF: 3 lisinopril 20 mg tablet 20 mg PO HS RF: 0 acetaminophen 500 mg tablet 1,000 mg PO Q8H PRN (Reason: pain) Qty: 60 RF: 3 ibuprofen 600 mg tablet 600 mg PO TID PRNQty: 60 RF: 3 Discharge Instructions Stand Alone Forms: Jamel longo/RCR Referrals: Sergio Mccullough MD [ [facility] STAFF PHYSICIAN] - Equipment/Supplies: Sling Activity:: Stay in sling except for hygiene andpendulum Remove Dressings/Wound Care:: 72 hours Shower/Bathe:: 72 hours Diet:: Carb Counting Discharge Orders Discharge Orders: Discharge Order (Routine); Ordered 07/29/19 Ordered By: Sergio Mccullough DS: Diagnosis Discharge Diagnosis (1) Tear of left rotator cuff: Status: Chronic
[2019-07-29] MEDS: Lactated Ringers 1,000 ML 80 ML IV ×2 (11:15→16:28)
[2019-07-29] MEDS: ceFAZolin 2 GM/50 ML BAG IVPB (12:57)
[2019-07-29] MEDS: EPINEPHrine 1 MG/ML AMP pres-free (13:49)
[2019-07-29] MEDS: EPINEPHrine 30 MG/30 ML VIAL (15:30)
[2019-07-29] MEDS: Albuterol/Ipratropium 3 ML UPD VIAL UPD (16:50)
--- NOTE | 2019-07-30 10:23 | ROE_ITS ---
name of procedure missing REPORT OF OPERATIVE PROCEDURE DATE OF PROCEDURE July 29, 2019 PREOPERATIVE DIAGNOSIS Recurrent left rotator cuff tear. POSTOPERATIVE DIAGNOSIS Recurrent left rotator cuff tear. PROCEDURE SURGEON Sergio Mccullough M.D. EXTERMINATOR HELPER TERMITE Bam Whitt PA-C ANESTHESIA General with an interscalene nerve block. FINDINGS There was recurrent tearing of the supraspinatus and the anterior portion of the infraspinatus. Some of the posterior rotator cuff appeared to be healed and some of the subscapularis was healed. There w as some minor lift off seen in the very upper portion of the subscapularis repair. There was notable synovitis throughout the shoulder. COMPLICATIONS None. DISPOSITION The patient was awakened from anesthesia and taken to the PACU in stable condition. INDICATION FOR PROCEDURE Nancy is a 59-year old who had a chronic, retracted rotator cuff tear, which was repaired back on Octob er. Unfortunately, he had persistent pain and weakness even at three months and therefore repeat MRI was used to confirm that he had re-torn some of the rotator cuff. There was no apparent mode of failu re. Given the failure of this, I did offer revision repair. However, I was very honest with Nancy that his chronicity of rotator cuff tear portends a poor prognosis, as well as his tobacco abuse and diabe kath. He has been effort in decreasing his cigarette use and finding alternatives to nicotine. He also is working diligently on better diabetes control and his A1c did decrease prior to surgery. I discussed the treatment options with Nancy and he desired to proceed with revision rotator cuff repai r. I discussed other treatment options including a nonoperative program, which he feels was not work ing. I discussed the risks of the procedure to include bleeding, infection, pain, stiffness, damage t o nerves and vessels, damage to muscles and tendons, re-tear, hardware prominence, hardware failure. Despite these risks, he elected to proceed. PROCEDURE DESCRIPTION Nancy was greeted in the preoperative holding area. His identity was confirmed and the correct side wa s identified and marked. The consent was reviewed with the patient and signed. The history and phys ical was updated. He was taken back to the PACU, where an interscalene nerve block was administered. After successful a dministration of the block, he was taken to the Operating Room. A general anesthetic was given and he was positioned in the beach chair position with all bony prominences were well padded and the head i n a neutral position in a foam desizing machine operator head end. It was ensured that there was no pressure along his belly or across his legs. All prominences were well padded with a pillow underneath his knees. The left arm was then prepped with ChloraPrep and draped in a standard fashion. Prophylactic antibio tics in the form of cefazolin were given. A timeout was performed for safe surgery. The left arm was placed into a SPIDER2 pneumatic arm santiago. Previous portals in the skin were marke d. A spinal needle was inserted into the joint and the joint was insufflated. Using standard techniqu e, the camera was inserted into the posterior portal and into the joint. We had excellent visualizati on of the joint surfaces, but seeing independent structures was difficult due to the amount of synovi tis seen in the shoulder. A second anterior portal was made in the rotator interval just above the subscapularis tendon. This w as done with spinal-needle localization. A 6.5-mm cannula was inserted through this area. I was then able to wash out the inside of the joint for better visualization. It did show a significant amount o f synovitis within the joint itself. This was anterior and posterior, as well as inferior. Using elec trocautery and a shaver, I debrided down as much synovitis as possible. Previous biceps tenotomy was seen and the labrum was debrided slightly. There was notable absence of the supraspinatus from the f ootprint of the greater tuberosity. This undersurface was debrided. The subscapularis was inspected first, which showed that the majority of the subscapularis appeared t o be healed. However, there was an upper portion about 5 mm in width, which was not attached. It was elevated off the tuberosity and the footprint was visible. This was somewhat mobile. Using a shaver, I debrided either side of the subscapularis tendon to encourage mobility. I then placed a #2 Orthocord through the upper portion of the subscapularis tendon. I incorporated th is into a 4.9-mm lateral knotless anchor, which was placed into the footprint of the lesser tuberosit y. This had excellent purchase into bone and the sutures were tightened so that it brought the tendo n onto the bone surface. With the extra sutures from the base of the knotless anchor, I then placed a second horizontal mattress suture, which further compressed the tendon against the footprint of the lesser tuberosity. This was tested 45 degrees of external rotation and noted to be stable without lif t off. Attention was then brought back to the superior rotator cuff. From within the joint this was debrided down. Once it was debrided fully and as much synovitis was removed as possible, the scope was remove d. This was then inserted into the subacromial space. A 6.5-mm anchor was placed anteriorly, lateral to the CC ligament. Two separate lateral portals were also established for viewing and working. With these portals established, a complete bursectomy was performed. There was notable bursitis and scarin g seen. The rotator cuff tendon was encapsulated with some scarring. This was debrided down with a sh aver. Once I was able to identify the tendon edges, I then used a grasper to identify tendon tear morpholog y. Again, this was more like an L-type tear, where the tendon was very mobile posterior to anterior a nd less mobile medial to lateral. Using tissue liberators, and the shaver, I debrided around and rese cted around the rotator cuff tendons for better excursion. I was able to easily move the tendon over to the footprint, at least the medial edge. The shaver was then used to debride down the footprint. I made sure to remove any remnant scar tissue or tissue in this area for tendon to bone healing. The bone quality in general was quite poor and the previous suture anchors were identified. Therefore , I chose to use 5.5-mm Fastin metal anchors. Two were placed at the medial margin of the articular s urface, one anterior in the greater tuberosity and one posterior. I did place a third anchor in the m iddle, which ended up being more lateral than I was hoping for, which was used later. From the two me dial row anchors, I then placed four horizontal mattress sutures. These were placed posteriorly worki ng to anterior to translate the rotator cuff tendon back from a posterior to anterior position and al so medial to lateral. These had excellent purchase in the tendon and did not have any pullout noted. They were tied using standard arthroscopic knot tying techniques and this reapproximated tendon down to bone. The entire medial aspect of the greater tuberosity was covered. There was a small amount of tendon material still remaining on the greater tuberosity and therefore I passed two horizontal mattress sutures from that third anchor as a backup into the very lateral harpreet in of the rotator cuff. A true lateral row was not performed. The sutures were cut. This showed the e xcellent reapproximation of the tendon onto the tuberosity with a very minimal amount of the tuberosi ty not covered. The majority of the lack of coverage was seen anteriorly. The shoulder was then evacu ated of any remnant fluid. The scope was removed. The portal sites were closed with a #4-0 Monocryl. They were dressed with Steri-Strips, 4 x 4s, ABD, Medipore tape. Nancy was then placed in a sling. At the end of the case, all counts were correct. He w as awakened from anesthesia and taken to the PACU in stable condition.
== END 2019-07-29 23:59 | disposition home or self-care (01) ==
PROVIDERS: PCP Nurse Practitioner; Visit Provider Student in an Organized Health Care Education/Training Program
PROC: (CPT 29827; principal; 2019-07-29 12:15)
DX: M75.112 Incomplete rotator cuff tear or rupture of left shoulder, not specified as traumatic (principal); M65.812 Other synovitis and tenosynovitis, left shoulder; F17.210 Nicotine dependence, cigarettes, uncomplicated; E11.9 Type 2 diabetes mellitus without complications; G89.18 Other acute postprocedural pain; K21.9 Gastro-esophageal reflux disease without esophagitis
CPT/HCPCS: 29827; 29820; C1713; 76942; J0171; J0690; J1100; J2250; J2370; J2704; J7620; L3670

== ENCOUNTER 2020-05-11 11:45 | Outpatient (CLI) | payer OTHER, SELFPAY ==
--- NOTE | 2020-05-11 11:15 | DI.RAD_ITS ---
EXAM: XR SHOULDER LT COMPLETE 2+V CLINICAL HISTORY: shoulder pain. TECHNIQUE: 2D digital imaging was performed. COMPARISON: CR XR shoulder LT complete 2+V from 01/16/2019 FINDINGS: BONES: There are post operative changes present. No fracture or dislocation. JOINTS: Mild degenerative changes are seen at the acromioclavicular joint and the glenohumeral joint. No joint effusion is present. SOFT TISSUE: Normal. IMPRESSION: Stable postoperative changes. DATA REPOSITORY: RADIATION DOSE DELIVERED:
== END 2020-05-11 12:05 ==
PROVIDERS: PCP Nurse Practitioner; Referring Provider Nurse Practitioner; Visit Provider Student in an Organized Health Care Education/Training Program
DX: M25.512 Pain in left shoulder (principal); M19.012 Primary osteoarthritis, left shoulder
CPT/HCPCS: 73030

== ENCOUNTER 2021-09-05 14:38 | Outpatient (CLI) | payer OTHER, SELFPAY ==
--- NOTE | 2021-09-05 13:15 | DI.RAD_ITS ---
Exam(s) XR SHOULDER RT COMPLETE 2+V EXAM: XR SHOULDER RT COMPLETE 2+V CLINICAL HISTORY: right shoulder pain. TECHNIQUE: 2D digital imaging was performed. COMPARISON: CR XR SHOULDER LT COMPLETE 2+V from 05/11/2020 FINDINGS: Two views the right shoulder reveal no evidence of fracture or dislocation. Mild degenerative change s. Small calcification noted adjacent to the greater tuberosity on the axial view. May indicate an element of calcific tendinitis. IMPRESSION: DATA REPOSITORY: RADIATION DOSE DELIVERED:
== END 2021-09-05 14:39 | disposition home or self-care (01) ==
LOC: DIORS 14:38
PROVIDERS: PCP Nurse Practitioner; Visit Provider Student in an Organized Health Care Education/Training Program
DX: M25.511 Pain in right shoulder (principal); M19.011 Primary osteoarthritis, right shoulder; M75.31 Calcific tendinitis of right shoulder
CPT/HCPCS: 73030

== ENCOUNTER → 2021-12-14 02:42 | Outpatient (CLI) | payer OTHER, SELFPAY ==
--- NOTE | 2021-12-14 06:15 | DI.MRI_ITS ---
Exam(s) MR UPPER JOINT RT WO EXAM: MR UPPER JOINT RT WO CLINICAL HISTORY: PAIN,bursitis rt shoulder, m75.51,impingement syndrome,m75.41 TECHNIQUE: Multiplanar multisequence MRI of the shoulder was performed. COMPARISON: CR XR SHOULDER RT COMPLETE 2+V from 09/05/2021 FINDINGS: MARROW:There is no evidence of fracture, Hill-Sachs deformity, nor bony Bankart lesion. There are de generative subarticular cysts in the posterolateral aspect of the humeral head. These confluent cyst s exhibit combined measurement of 1 point 5 x 1.4 cm. There is no prominent surrounding bone edema i n the greater tuberosity of the humeral head. No ominous bone lesions. ROTATOR CUFF MECHANISM: AC JOINT/ACROMIUM: Moderate degenerative changes. Some impingement. Undersurface of the acromion is flat.. There is no evidence of os acromiale. Supraspinatus: There is prominent signal abnormality throughout the supraspinatus tendon consistent w ith chronic tendinosis and multilevel partial-thickness tearing. There is no retraction of the muscu lotendinous junction. No prominent muscle belly atrophy. There is a small amount of fluid in the ramos bacromial-subdeltoid bursa. Infraspinatus: There is some fluid signal abnormality at the muscular 0 tendinous junction but no ful l-thickness tear. No prominent atrophy. Teres Minor: There is selective atrophy/fatty change of the teres minor muscle belly. Subscapularis/anterior cuff: Intact. No tear. No atrophy. BICEPS TENDON: Long head biceps tendon exhibits split tearing in the intertubercular groove there is poor visualization of the intra-articular aspect consistent with tearing. LABRUM: There is structural and signal abnormality in the superior labrum consistent with tearing. T here is no paralabral cyst. The posterior labrum appears intact. Anterior labrum appears intact. I nferior labrum appears intact. No evidence of Bankart injury. GLENOHUMERAL JOINT: Moderate degenerative change with some cartilage loss but no large chondral defec ts. Small osteophyte on the humeral head side of the joint. There are no degenerative subarticular cysts in the osseous glenoid. No evidence of capsular tear. The inferior glenohumeral ligament is i ntact. QUADRILATERAL SPACE: No evidence of mass. Visualized triceps tendon unremarkable. IMPRESSION: 1. Chronic tendinosis signal throughout the rotator cuff supraspinatus tendon and with multilevel par tial-thickness tear is in the tendon although there does appear to be some fluid in the sub acromial- subdeltoid bursa which may indicate a component of focal full-thickness tearing. There is no retract ion musculotendinous junction. Degenerative subarticular cysts are evident in the greater tuberosity . 2. There is selective atrophy of the teres minor muscle. Indicates possible axillary nerve pathology . There is no mass in the quadrilateral space evident on the present study. 3. Tearing of the long head biceps tendon as described above. 4. Superior labral tear evident. No evidence of paralabral cyst. 5. Moderate degenerative changes in the glenohumeral and AC joints. No prominent joint effusion and no loose intra-articular bodies evident. DATA REPOSITORY:
== END ==
PROVIDERS: PCP Nurse Practitioner; Visit Provider Student in an Organized Health Care Education/Training Program
DX: M75.41 Impingement syndrome of right shoulder (principal); M75.51 Bursitis of right shoulder; M75.101 Unspecified rotator cuff tear or rupture of right shoulder, not specified as traumatic; M85.611 Other cyst of bone, right shoulder; M62.511 Muscle wasting and atrophy, not elsewhere classified, right shoulder; S46.111A Strain of muscle, fascia and tendon of long head of biceps, right arm, initial encounter; S43.431A Superior glenoid labrum lesion of right shoulder, initial encounter; X58.XXXA Exposure to other specified factors, initial encounter
CPT/HCPCS: 73221

== ENCOUNTER 2022-03-23 06:17 | Day surgery (SDC) | payer OTHER, SELFPAY ==
[2022-03-23] VITALS (12 sets, daily range): BP systolic 89–117; BP diastolic 45–74; PULSE 64–85; RESP 12–22; TEMP 36.6–36.8; O2SAT 91–96; BMI 30.1
--- NOTE | 2022-03-23 06:59 | W.ANESPRE ---
General Info Date of Service Date Performed: 03/23/22 Height: 5 ft 8 in Weight: 89.9 kg Body Mass Index (BMI): 30.1 Surgical Procedure: Operation Date: 03/23/22 07:40 Proposed Procedure Side Surgeon p Shoulder Rotator Cuff Arthroscopic w/Extensive Debridement, Biceps Tenodesis, Subacromial Decompression Right Solomon Wolff MD Meds Allergies and Home Medications Allergies Allergy/AdvReac Type Severity Reaction Status Date / Time shellfish derived Allergy Severe throat Verified 03/23/22 06:47 swells Home Medication Medication Instructions Recorded ascorbic acid (vitamin C) 1,000 mg 1,000 mg PO DAILY 10/06/12 tablet aspirin 81 mg tablet,delayed 81 mg PO DAILY 10/06/12 release (Aspir-) garlic 1 ea PO DAILY 10/06/12 multivitamin (Daily Vitamin tablet) 1 ea PO DAILY 10/06/12 omega-3 fatty acids-fish oil 340 1 ea PO HS 10/06/12 mg-1,000 mg capsule (Fish Oil) fenofibrate nanocrystallized 145 145 mg PO DAILY #90 tab-caps 11/17/18 mg tablet (Tricor) gabapentin 800 mg tablet 800 mg PO QHS #90 tabs 03/10/19 pen needle, diabetic 32 gauge x ##100 03/19/19 (BD Ultra-Fine Afua Pen Needle) lisinopril 20 mg tablet 20 mg PO HS 03/24/19 atorvastatin 80 mg tablet 80 mg PO DAILY #90 tab-caps 05/18/19 acetaminophen 500 mg tablet 1,000 mg PO Q8H PRN pain #60 tabs 07/29/19 metformin 1,000 mg 24 hr 2,000 mg PO DAILY #180 tab-caps 08/06/19 tablet,extended release omeprazole 20 mg capsule,delayed 20 mg PO DAILY #90 tab-caps 08/06/19 release empagliflozin 25 mg tablet 25 mg PO DAILY #30 tab-caps 08/24/19 (Jardiance) semaglutide 0.25 mg or 0.5 mg (2 0.5 mg subcut QWEEK 07/26/21 mg/1.5 mL) subcutaneous pen injector trazodone 50 mg tablet 50 mg PO QHS PRN 07/26/21 cholecalciferol (vitamin D3) 50 50 mcg PO DAILY 12/20/21 mcg (2,000 unit) capsule insulin glargine 100 unit/mL 16 unit subcut HS 12/20/21 subcutaneous solution (Lantus U-100 Insulin) oxycodone 5 mg tablet 5 - 10 mg PO Q4H PRN pain, severe 02/28/22 #18 tabs Current Visit Medications: Current Medications Generic Name Dose Route Start Last Admin Trade Name Freq PRN Reason Stop Dose Admin Ringer's Solution 1,000 mls @ 30 mls/hr 03/23/22 06:00 IV 03/23/22 16:00 INFUSION ANTONETTE Cefazolin Sodium/Dextrose 2 gm in 50 mls @ 100 mls/hr 03/23/22 06:00 Ancef Duplex IVPB 03/23/22 23:59 PREOP ANTONETTE IV Miscellaneous Supplies 1 each 03/23/22 06:00 Iv Access IV 03/23/22 23:59 DIRECTED ANTONETTE Sodium Chloride 0 ml 03/23/22 06:00 Normal Saline Flush 10 Ml Syr IV 03/23/22 23:59 PRN PRN Sodium Chloride 0 ml 03/23/22 06:00 Normal Saline 10 Ml Vial IJ 03/23/22 23:59 DIRECTED PRN Sterile Water 0 ml 03/23/22 06:00 Water,Injection,Sterile 10 Ml Vial IJ 03/23/22 23:59 DIRECTED PRN PFSH Active Problems Active Problems: Problem Status Onset Code Unspecified sleep apnea 09/25/11 G47.30 Tobacco dependence syndrome 09/25/11 F17.200 Restless legs 09/25/11 G25.81 Other and unspecified hyperlipidemia 10/28/12 E78.5 Obesity, unspecified 09/25/11 E66.9 Microalbuminuria 05/07/13 R80.9 Low back pain, non-specific 09/25/11 M54.5 Low HDL (under 40) 02/20/18 E78.6 High cholesterol 03/21/17 E78.00 Other and unspecified hyperlipidemia 10/28/12 E78.5 GERD (gastroesophageal reflux disease) 08/06/14 K21.9 Essential hypertension 01/30/13 I10 Diabetes mellitus 10/29/12 E11.9 Tear of left rotator cuff M75.102 Anxiety F41.9 Bursitis of right shoulder M75.51 Rotator cuff impingement syndrome of right shoulder M75.41 Right rotator cuff tear M75.101 SLAP lesion of right shoulder S43.431A Medical History Medical History (Updated 03/23/22 @ 07:11 by Solomon Wolff MD) Orbital floor fracture Left >30 years ago Rotator cuff impingement syndrome of right shoulder SLAP lesion of right shoulder Surgical History Surgical History Endoscopic Carpal Tunnel release (05/16/15) Right - Dr Benson Left - Dr Mccullough History of ankle fusion Left History of colonoscopy History of open reduction and internal fixation (ORIF) procedure right ankle History of tooth extraction Left tooth 03/19 History of wisdom tooth extraction Hx of knee surgery bilateral meniscus tear repair per pt. Meniscectomy (04/19/14) bilat PARTIAL MEDIAL-DR BENSON Status post trigger finger release Left ring finger Tobacco Smoking/Tobacco Use Status: Current every day Tobacco Type: cigarettes Years smoked: 45 Alcohol Alcohol Intake: never Substance Use Substance use: Daily Substance use type: marijuana Details: last smoked marijuana 03/22/22 Vital Signs and Lab Results Vital Signs Most Recent Vital Signs in EMR: Most Recent Vital Signs Temp Pulse Resp BP Pulse Ox 36.6 C 85 18 117/65 95 03/23/22 06:33 03/23/22 06:33 03/23/22 06:33 03/23/22 06:33 03/23/22 06:33 Point of Care Results Point of Care Results: Finger Stick Blood Glucose 150 03/23/22 06:45 Lab Results Blood Type / Crossmatch: No Data to Display Complete Blood Count: No Data to Display Complete Metabolic Panel: No Data to Display Liver Function Panel: No Data to Display Coagulation Panel: No Data to Display Cardiac Panel: No Data to Display Arterial Blood Gas: No Data to Display Venous Blood Gas: No Data to Display Pancreas Panel: No Data to Display Thyroid Panel: No Data to Display Infectious Disease: No Data to Display Blood Cultures: No Data to Display Toxicology Panel: No Data to Display Anesthesia Assessment and Plan Anesthesia History Personal History: No History of Anesthesia Complications Family History: No Family History of Anesthesia Complications Exercise Tolerance Exercise Tolerance: Metabolic Equivalents>4 Pertinent Negatives Pertinent Negatives: No Symptoms of GERD, No Major Cardiovascular Symptoms or Complaints and No Major Pulmonary Symptoms or Complaints Cardiac & Pulmonary Exam Cardiac Exam: Normal S1/S2 Heart Sounds Pulmonary Exam: Clear Bilateral Breath Sounds Implantable Cardiac Device Does patient have a Pacemaker or an ICD?: No Airway Exam Known Difficult Airway: No Mallampati Class: 1 Mouth Opening: Normal (> 3cm) Thyromental Distance: Greater than 3 cm Facial Hair: Full [place] Neck Range of Motion: Full ROM Neck Circumference: Normal Teeth Condition: Normal Dentition ASA Classification ASA Score: ASA 2 Emergency Case?: No NPO Status NPO Status: NPO Clears >2 hours, Solids >8 hours Anesthesia Plan Resuscitation Status: Full Code Anesthesia Technique: General Anesthesia Airway Planned: Endotracheal Tube Pain Management: Surgeon and patient request nerve block Monitors Used: Standard Monitors
[2022-03-23] MEDS: Lactated Ringers 1,000 ML 30 ML IV (07:02)
[2022-03-23] MEDS: ceFAZolin 2 GM/50 ML BAG IVPB (07:30)
[2022-03-23] MEDS: EPINEPHrine 1 MG/ML AMP pres-free (08:17)
--- NOTE | 2022-03-23 08:19 | W.ANESNERVE ---
Nerve Block Single Injection Procedure Date and Time Date Performed: 03/23/22 Procedure Start: 07:15 Location Where Procedure Performed Procedure Location: Day Surgery Unit Reason Performed: Postoperative Analgesia Requesting Provider: Solomon Wolff Timeout Performed Timeout Performed: Yes Monitoring Used ECG, Blood Pressure, SpO2 and See EMR for corresponding vital signs Sterility Sterility: Hand Hygiene, Surgical Cap, Surgical Mask, Sterile Gloves and Chlorhexidine Sedation Given During Procedure Sedation Given (Indicate Dose Given): Versed IV Dose:: 2mg and Precedex IV Dose:: 12 mcg Patient Mental Status Patient Mental Status: Sedate with meaningful communication Nerve Block 1st Nerve Block: Laterality: Right Block Type: Interscalene Needle / Catheter Used: 100mm SonoPlex II Local Anesthetic Bolus (Indicate Dose Given): Lidocaine used for local infiltration of skin, Injected in 3-5ml increments after negative blood aspiration, Bupivacaine 0.5% Dose:: 10ml and Exparel Dose:: 10ml Additives (Indicate Dose Given): None Ultrasound: Sterile probe cover and gel used Ultrasound Image Saved?: Yes Nerve Stimulator: Not Used Paresthesia: None Procedure Tolerated: No Complications and Patient tolerated well Procedure Outcome: Successful Performed By: Hema Berrios
--- NOTE | 2022-03-23 09:35 | W.PM.DSUDISC ---
Discharge Plan Disposition Patient Disposition: HOME Condition: Stable Discharge Details Reason For Visit: Right shoulder surgery Attending Provider: Solomon Wolff Primary Care Provider: Dianne Enriquez Home Meds and New Rx's Prescriptions: Continued insulin glargine [Lantus U-100 Insulin] 100 unit/mL solution 16 unit subcut HS oxycodone 5 mg tablet 5 - 10 mg PO Q4H MDD 60mg PRN (Reason: pain, severe) Qty: 18 0RF gabapentin 800 mg tablet 800 mg PO QHS Qty: 90 3RF cholecalciferol (vitamin D3) 50 mcg (2,000 unit) capsule 50 mcg PO DAILY multivitamin [Daily Vitamin] 1 EACH tablet 1 ea PO DAILY ascorbic acid (vitamin C) 1,000 MG tablet 1,000 mg PO DAILY aspirin [Aspir-81] 81 MG tablet,delayed release (DR/EC) 81 mg PO DAILY garlic 1 EACH capsule 1 ea PO DAILY Fish Oil 1 EACH capsule 1 ea PO HS fenofibrate nanocrystallized [Tricor] 145 mg tablet 145 mg PO DAILY Qty: 90 3RF (DME) pen needle, diabetic [BD Ultra-Fine Afua Pen Needle] 32 gauge x 5/32 needle 1 ea Sub-Q DAILY Qty: 100 3RF Rx Instructions: [place] [facility] Pen [place] E11.9 to maintain AIC at or below 7.0 atorvastatin 80 mg tablet 80 mg PO DAILY Qty: 90 3RF metformin 1,000 mg tablet,ER beau.retention 24 hr 2,000 mg PO DAILY Qty: 180 3RF omeprazole 20 mg capsule,delayed release(DR/EC) 20 mg PO DAILY Qty: 90 3RF Jardiance 25 mg tablet 25 mg PO DAILY Qty: 30 6RF semaglutide 0.25 mg or 0.5 mg(2 mg/1.5 mL) pen injector 0.5 mg subcut QWEEK trazodone 50 mg tablet 50 mg PO QHS PRN lisinopril 20 mg tablet 20 mg PO HS acetaminophen 500 mg tablet 1,000 mg PO Q8H PRN (Reason: pain) Qty: 60 3RF Discharge Instructions Additional Instructions: Surgery: Right shoulder arthroscopy with rotator cuff repair (subscapularis and supraspinatus), extensive debridement, and subacromial decompression. Activity: For 6 weeks, you should keep your arm at your side in a neutral position at all times except for physical therapy. Do not try to lift or raise your arm using your own muscles. You should use the sling whenever you are out of the house. You may have to adjust the abduction pillow or remove it for comfort. At home it is best to remove the sling and rest the arm on a pillow at your side or support the operative side with your other hand. You may allow the arm to dangle at your side. A physical therapy prescription will be sent electronically to begin in about 3 weeks. Prescriptions: (Already provided in advance) Aspirin 81 mg take 1 daily to prevent a blood clot for 2 weeks Naproxen 250 mg take 1-2 every 12 hours with a meal as needed for moderate pain Oxycodone 5 mg take 1-2 every 4-6 hours as needed for severe pain You may use [id number] Tylenol (acetaminophen) as needed for mild pain. These pain medications may be taken all at once or in different combinations as needed. Also, recommend Colace (docusate) as a stool softener as surgery and pain medicine cause constipation. You may try [id number] diphenhydramine (Benadryl) 25-50 mg nightly as a sleep aid Dressings: Remove shoulder bandage after 3 days. Leave the sticky Steri-Strips in place until they fall off or remove them after you shower. Cover the incisions with Band-Aids or leave them open to air. You may shower after 5 days. Follow-up: 10-[address] Wolff You may take off the leg compression stockings this evening at home. You may also leave them on a few days longer if you have a history of leg swelling or edema. Let us know right away if you develop any redness, drainage, fevers, chest pain, or trouble breathing. Do not drink alcohol or drive for at least 24 hours after anesthesia. Please call the office during business hours with any questions or concerns. Discharge Orders Discharge Orders: Discharge Order (Routine); Ordered 03/23/22 Ordered By: Solomon Wolff DS: Diagnosis Discharge Diagnosis (1) Right rotator cuff tear: Status: Acute (2) Bursitis of right shoulder: Status: Acute
--- NOTE | 2022-03-23 09:45 | W.PM.OP ---
Operative Note Operative Note DATE OF PROCEDURE: 03/23/22 PRE-OP DIAGNOSIS: Right: 1. Rotator cuff tear 2. LHB tendinopathy 3. Bursitis 4. Greater tuberosity bone cysts POST-OP DIAGNOSIS: same PROCEDURE: Right: 1. Rotator cuff repair, CPT# 29820. This involved repair of the subscapularis and supraspinatus using anchors and sutures to repair and reattach the rotator cuff. 2. Extensive debridement, CPT# 57702. This involved using arthroscopic hand instruments, power instruments, and radiofrequency instruments to release the MGL, debride areas of labral tearing, synovitis, partial articular rotator cuff tearing, and chondromalacia about the lesser and greater tuberosities as well as biceps groove working within the glenohumeral joint anteriorly, superiorly and posteriorly. 3. Subacromial decompression with partial acromioplasty, CPT# 32895. This involved using arthroscopic power instruments and a radiofrequency wand to complete a bursectomy and remove bone spurs on the undersurface of the acromion. The recruitment and outreach assistant was medically required in order to help assist in techniques above, which require positioning the arm, holding the arthroscope, and manipulating multiple instruments and sutures at the same time. This cannot be done without the help of an experienced recruitment and outreach assistant. SURGEON: Solomon Wolff [employer]: [employer] ANESTHESIA TYPE: General LMA/ETT and Primary Nerve Block Refer to Anesthesia Record ESTIMATED BLOOD LOSS: 10 PATHOLOGY: none sent COMPLICATIONS: None Patient was transported to: PACU Patient's condition: stable Implants: Arthrex: 5.5mm SwiveLocks x 1 Indications: The patient was diagnosed with the above conditions and appropriately indicated for surgical intervention. Please see complete medical record for details. Findings: Exam under anesthesia: Full range of motion, no instability Glenohumeral joint: Profound anterior and superior synovitis. Generalized moderate glenohumeral chondromalacia. Significant degenerative rotator cuff and labral tissue. Displaced SLAP tear. Mucoid chronic degenerated mid body and lateral subscapularis tearing without significant detachment from lesser tuberosity. Proximal biceps absent, consistent with prior rupture. Medial trans-? tenderness supraspinatus tear. Articular sided infraspinatus with mild to moderate fraying no significant footprint involvement. Subacromial space: Moderate bursitis and minimal undersurface acromial bone spurring. Moderately sized, chronic degenerative appearing medial trans-tendinous supraspinatus rotator cuff tear. Remainder of bursal rotator cuff intact. Procedure Description: In the operating room, general anesthesia was induced. Bilateral shoulders were examined. The patient was positioned in the beachchair position. All bony prominences were well-padded. Preoperative antibiotics were administered. The shoulder was prepped and draped in the usual sterile fashion. The correct patient, procedure, and side of the procedure were all verified prior to incision. Starting through the posterior portal a standard complete diagnostic arthroscopy was performed of the glenohumeral joint including inspection of the long head of the biceps, anterior and superior labrum, subscapularis tendon, supraspinatus and infraspinatus tendons, and axillary recess. The glenoid and humeral head cartilage as well as the posterior labrum were inspected from an anterior viewing portal. Significant findings and interventions noted above. The subscapularis was significantly and chronically degenerated with deficiency somewhat centrally and laterally. This was debrided of unhealthy tissue. The 90 degree lasso was then used to place a repair stitch circumferentially around the zone of injury using a single anterior portal technique with a suture tape, which was secured using SMC arthroscopic knot well bringing together the remaining tendon. No suture anchor was used given the poor tendon and bone quality and relatively intact lesser tuberosity attachment. Starting through the posterior portal, the arthroscope was directed into the subacromial space. A lateral 50 yard line lateral portal was created. A combination of power instruments and a radiofrequency ablator were used to debride bursitis anteriorly, posteriorly, and laterally as well as expose and smooth minimal bone spurring on the undersurface of the acromion. The coracoacromial ligament was only minimally released. The bursectomy was completed viewing laterally and working from posteriorly and the rotator cuff was thoroughly inspected with findings noted above. Distally, there was no apparent bursal rotator cuff tear. The arthroscope was redirected back into the glenohumeral joint and a spinal needle was placed lateral to the acromion into the obvious tear. The arthroscope was redirected back into the subacromial space and on further probing and debriding, the moderately large medial trans-? tenderness supraspinatus tear became readily apparent. It also appeared chronic with fraying and degenerative tissue on both sides. The bone beneath was lightly debrided given the poor bone quality. The lateral remnant was large and covered the majority of the greater tuberosity. Options were limited given medial nature of the tear and bone poor tissue quality with underlying greater tuberosity bone cysts. A self retrieving suture passer was used to pass a FiberTape inverted horizontal mattress through the medial aspect of the supraspinatus tendon with wide tissue grabs. A suture tape FiberLink was then passed between the mattress sutures in a ripstop fashion medial aspect of the tear as well. The free tail from this link was then shuttled through the lateral remnant tissue before passing through the loop and cinching the rotator cuff tear medial and lateral tissue together. The FiberTapes and this link were brought far lateral and using an undersized punch and oversized 5.5 mm SwiveLock anchor secured with reasonable tissue reduction, stability, and fixation strength. The shoulder was drained of arthroscopic fluid. All portal sites were copiously irrigated. These incisions were closed using 3-0 Monocryl in a buried fashion and then covered with Mastisol, Steri-Strips, Xeroform, dry gauze, and ABDs. The dressings were covered and secured with Medipore tape. The operative extremity was placed into a sling for immobilization. The patient awoke from anesthesia without complication and was transferred to the recovery room in a stable condition.
[2022-03-23] MEDS: HYDROmorphone 2 MG/ML SYR IVP (10:18)
[2022-03-23] MEDS: ePHEDrine 25 MG/5 ML Syringe IVP (10:42)
--- NOTE | 2022-03-23 12:52 | W.ANESPOSTOP ---
Postoperative Evaluation Date, Time and Location Date Performed: 03/23/22 Time Performed: 11:45 Patient Location: Day Surgery Unit Vital Signs Most Recent Imported Vital Signs: Most Recent Vital Signs Temp Pulse Resp BP Pulse Ox 36.7 C 64 18 99/62 L 93 03/23/22 11:38 03/23/22 11:38 03/23/22 11:38 03/23/22 11:38 03/23/22 11:38 Pain Score Most Recent Pain Score: Most Recent Pain Score Pain Level 3 03/23/22 11:38 Assessment Mental Status: Awake (Alert & Oriented to Patient Baseline) Airway and Respiratory Function: Patent airway with normal (patient baseline) respiratory exam Cardiovascular Function: Hemodynamically Stable Hydration Status: Adequately Hydrated Nausea & Vomiting: No Nausea or Vomiting Pain: Pt. Denies Any Pain Peripheral Nerve Block: Regional nerve block not resolved at time of post operative discharge
== END 2022-03-23 12:05 | disposition home or self-care (01) ==
PROVIDERS: PCP Nurse Practitioner; Visit Provider Student in an Organized Health Care Education/Training Program
PROC: (CPT 29827; principal; 2022-03-23 07:30)
DX: M75.101 Unspecified rotator cuff tear or rupture of right shoulder, not specified as traumatic (principal); M75.21 Bicipital tendinitis, right shoulder; M75.51 Bursitis of right shoulder; E11.9 Type 2 diabetes mellitus without complications
CPT/HCPCS: 29827; 29826; 29823; 76942; J0171; J0690; J1100; J1170; J1885; J2250; J2370; J2405; J2704